=== PATIENT | female | born 1975 | race Caucasian/White ===

== ENCOUNTER 2016-08-30 08:09 | Emergency (ER) | payer BC ==
--- NOTE | ~2016-08-30 | CT4 ---
[facility] A Service of [facility] & [facility] RADIOLOGY TEXT RESULTS PATIENT: ANTOINE MA LOCATION: [facility] : 75 UNIT #: [id number] AGE: [address]: Andrea Griffin MD SEX: F ORDER DR: [id number] [facility] [address] [place], [place] [address] [id number] MR#: [id number] Acc #: [id number] NAME: ANTOINE MA : 1975 SEX: F STUDY DATE/TIME: 08/30/2016 10:41 UNIT: [facility] ROOM: STUDY DESCRIPTION: CT Abd and Pelv Wo Cont Attending Physician: Adnrea Griffin M.D. Ordering Physician: Jody Alvarado P.A.-C. Primary Care Physician: Nasrin Fernandez M.D. MEDICAL IMAGING REPORT This report is preliminary unless electronic signature is present EXAM CT abdomen and pelvis without contrast, 08/30/2016, 1041 hours. CLINICAL HISTORY 41-year-old woman complaining of worsening right flank pain over the past 2 days. History of cholecystectomy. COMPARISON CT abdomen, 01/19/2007. TECHNIQUE Helical noncontrasted images were obtained from the lung bases through the pubic symphysis. No oral or intravenous contrast was administered. Sagittal and coronal reconstructions were performed. Total exam DLP 596 mGy-cm. This CT exam was performed with one or more of the following radiation dose reduction techniques: automatic exposure control, adjustment of mA and/or kV according to patient size, and iterative reconstruction. FINDINGS Images through the lung bases are clear. There are no effusions. The distal esophagus is normal. Images through the abdomen demonstrate overall normal liver size. There are multiple low-density liver lesions which have clearly increased in size and number since 01/19/2007, although cystic lesions were present at that time. There is a cluster of cysts at the dome of the liver measuring up to 8.3 cm. There is a cyst in the lateral segment left lobe of the liver measuring up to 4.5 cm, previously 2.8 cm. Many other small low-density lesions are new but appear to represent cysts. Density measurements obtained through multiple lesions are all less than 10 Hounsfield units. The spleen is normal in size and density. The pancreas [facility] [place] A Service of [facility] RADIOLOGY TEXT RESULTS PATIENT: ANTOINE MA LOCATION: [facility] : 75 UNIT #: [id number] AGE: [address]: Andrea Griffin MD SEX: F ORDER DR: appears normal. There are clips consistent with prior cholecystectomy. There is no bile duct dilatation. The adrenal glands are normal. The kidneys have a normal noncontrasted appearance. There is no cyst, mass, or stone. There is no pelvocaliectasis or ureterectasis. No ureteral calculus seen. The stomach is unopacified and contracted but appears normal. There is no small bowel distension or small bowel wall thickening. The appendix is normal. There is no colonic wall thickening or colonic distension. CT pelvis demonstrates a normal appearance to the uterus. There is no adnexal mass or free fluid. No hernias are seen. Bone window images demonstrate severe disc height loss and endplate spurring at L5-S1, likely with left-sided lateral recess narrowing. IMPRESSION 1. There are innumerable low-density lesions in the liver of various sizes. These are increased in size and number from 01/19/2007 with characteristics most consistent with benign hepatic cysts. 2. No renal or ureteral calculi. 3. The stomach, small bowel, appendix, and colon are normal. 4. Degenerative disc disease at L5-S1 with disc osteophyte complex resulting in left lateral recess narrowing and perhaps left foraminal narrowing. Dictated by... Ning Wellington M.D. THIS IS AN ELECTRONICALLY VERIFIED REPORT Ning Wellington M.D. at 08/30/2016 2:32 PM AYDEN/aysha TD: 08/30/2016 14:13 JOB #: [id number] MEDICAL IMAGING REPORT Page 1 of 1 COPY
[2016-08-30 09:21] LABS: URINE SOURCE CLEAN CATCH
[2016-08-30 09:24] LABS: URINE APPEARANCE CLEAR; URINE BILIRUBIN NEG (NEG); URINE BLOOD NEG (NEG); URINE COLOR YELLOW; URINE GLUCOSE NEG (NEG); URINE KETONE TRACE (NEG); URINE LEUKOCYTE ESTERASE NEG (NEG); URINE NITRATE NEG (NEG); URINE PROTEIN NEG (NEG); URINE SPECIFIC GRAVITY 1.012 (1.003-1.035)
[2016-08-30 09:25] LABS: BASOPHIL# 0.1 X10e3 (0-0.3); BASOPHIL% 0.7 % (0-2.5); EOSINOPHIL# 0.1 X10e3 (0-0.7); EOSINOPHIL% 1.2 % (0.0-7.0); HEMATOCRIT 45.2 % (35.0-45.0); HEMOGLOBIN 15.1 gm/dL (12.0-16.0); LYMPHOCYTE# 1.4 X10e3 (1.0-3.5); LYMPHOCYTE% 16.9 % (17.0-45.0); MEAN CELL VOLUME 89.2 FL (83-96); MEAN CORPUSCULAR HEMOGLOBIN 29.8 PG (28-34); MEAN CORPUSCULAR HGB CONC 33.4 g/dL (30-36); MEAN PLATELET VOLUME 8.9 FL (6.5-11.5); MONOCYTE# 0.7 X10e3 (0-1.0); MONOCYTE% 8.9 % (3.0-12.0); NEUTROPHIL# 5.9 X10e3 (1.5-7.1); NEUTROPHIL% 72.3 % (40-75); PLATELET COUNT 259 X10e3 (140-420); RED BLOOD COUNT 5.07 X10e (3.90-5.30); RED CELL DISTRIBUTION WIDTH 12.8 % (11.0-15.5); WHITE BLOOD COUNT 8.2 X10e3 (4.0-10.5)
[2016-08-30 09:27] LABS: CULTURE INDICATED? NO
[2016-08-30 09:28] LABS: DIFF IND NO
[2016-08-30 09:53] LABS: BUN/CREATININE RATIO 17.77; CREATININE SERUM 0.9 mg/dL (0.6-1.4); GLOM FILT RATE Estimated 79.5 mL/min (>60); POTASSIUM 3.8 mmol/L (3.5-5.1)
[2016-08-30 12:24] LABS: BILIRUBIN, DIRECT 0.1 mg/dL (0.0-0.2); BILIRUBIN,INDIRECT 1.1 mg/dL (0.0-0.9); BILIRUBIN,TOTAL 1.2 mg/dL (0.2-2.0); PROTEIN TOTAL SERUM 6.8 g/dL (6.0-8.3)
== END 2016-08-30 13:18 | disposition home or self-care (01) ==
LOC: CED 08:09
PROVIDERS: Emergency Medicine; Physician Assistant
DX: R10.9 Unspecified abdominal pain (principal); G43.909 Migraine, unspecified, not intractable, without status migrainosus; Z90.49 Acquired absence of other specified parts of digestive tract; Z98.890 Other specified postprocedural states; Z87.891 Personal history of nicotine dependence; Z79.899 Other long term (current) drug therapy
CPT/HCPCS: 36415; 74176; 80048; 80076; 81003; 83690; 84703; 85025; 96361; 96374; 96375; 99284; J1885; J2270; J2405

== ENCOUNTER → 2016-10-07 | Outpatient (CLI) | payer BC ==
--- NOTE | ~2016-10-07 | US24 ---
[facility] A Service of [facility] & [facility] RADIOLOGY TEXT RESULTS PATIENT: ANTOINE MA LOCATION: [facility] : 75 UNIT #: [id number] AGE: [address]: Nasrin Fernandez MD SEX: F ORDER DR: [id number] [facility] [address] [place], [place] [address] [id number] O MR#: [id number] Acc #: [id number] NAME: ANTOINE MA : 1975 SEX: F STUDY DATE/TIME: 10/07/2016 8:34 UNIT: [facility] ROOM: STUDY DESCRIPTION: US Breast Unilateral Attending Physician: Nasrin Fernandez M.D. Referring Physician: Nasrin Fernandez M.D. Ordering Physician: Nasrin Fernandez M.D. Primary Care Physician: Nasrin Fernandez M.D. MEDICAL IMAGING REPORT This report is preliminary unless electronic signature is present EXAM Left breast ultrasound INDICATIONS 6-month followup left breast mass. PROCEDURE Leblanc-scale and Doppler imaging of the left breast 2 o'clock position. Comparison 04/03/2016 and concurrently performed diagnostic mammogram. FINDINGS/IMPRESSION Refer to separately dictated diagnostic mammogram for complete workup, findings and recommendations. BIRADS: 2 - benign findings Dictated by... Devendra Laurent M.D. THIS IS AN ELECTRONICALLY VERIFIED REPORT Devendra Laurent M.D. at 10/08/2016 7:10 AM MANI/sameer TD: 10/07/2016 14:47 JOB #: [id number] MEDICAL IMAGING REPORT Page 1 of 1 COPY
--- NOTE | ~2016-10-07 | MY24 ---
[facility] A Service of [facility] RADIOLOGY TEXT RESULTS PATIENT: ANTOINE MA LOCATION: [facility] ACC #: [id number] : 75 UNIT #: [id number] AGE: [address]: Nasrin Fernandez MD SEX: F ORDER DR: [id number] [id number] [place], [place] [address] [id number] O MR#: [id number] Acc #: [id number] NAME: ANTOINE MA : 1975 SEX: F STUDY DATE/TIME: 10/07/2016 8:07 UNIT: [facility] ROOM: STUDY DESCRIPTION: [facility] W/ [facility] Attending Physician: Nasrin Fernandez M.D. Referring Physician: Nasrin Fernandez M.D. Ordering Physician: Nasrin Fernandez M.D. Primary Care Physician: Nasrin Fernandez M.D. MEDICAL IMAGING REPORT This report is preliminary unless electronic signature is present EXAM Left digital diagnostic mammogram INDICATION 6-month followup left breast focal asymmetry. PROCEDURE CC true lateral and MLO views of the left breast. XCCL view left breast. Spot compression views of the left breast in the MLO and XCCL projections. COMPARISON 04/03/2016 FINDINGS Scattered fibroglandular density. 9.0 mm mass in the far upper outer quadrant of the left breast is unchanged. There is no new dominant mass or suspicious calcification. Targeted left breast ultrasound shows a 6.0 mm lymph node in the left breast at the 2 o'clock position 11.0 cm from the nipple. It is unchanged from the prior. No new or suspicious mass. IMPRESSION Benign left digital diagnostic mammogram and ultrasound. Recommend patient continue with yearly screening. Patients over the age of 40 are entered into a reminder system with target due date for the next mammogram. A result letter will also be sent to the patient. BIRADS: 2 Benign Finding [facility] A Service of [facility] RADIOLOGY TEXT RESULTS PATIENT: ANTOINE MA LOCATION: [facility] : 75 UNIT #: [id number] AGE: [address]: Nasrin Fernandez MD SEX: F ORDER DR: Dictated by... Devendra Laurent M.D. THIS IS AN ELECTRONICALLY VERIFIED REPORT Devendra Laurent M.D. at 11/04/2016 8:21 AM Med TD: 10/07/2016 14:35 JOB #: [id number] MEDICAL IMAGING REPORT Page 1 of 1 COPY
== END | disposition home or self-care (01) ==
LOC: CMAM 07:32
DX: R92.8 Other abnormal and inconclusive findings on diagnostic imaging of breast (principal)
CPT/HCPCS: 76641; G0206